=== PATIENT | male | born 1995 | race Caucasian/White ===

== ENCOUNTER 2019-04-24 12:23 | Emergency (ER) | payer OTHER ==
[~2019-04-24] VITALS: Ht 177.8 cm; Wt 99.8 kg
== END 2019-04-24 15:58 | disposition home or self-care (01) ==
LOC: ER 12:23
DX: M54.5 Low back pain (principal)

== ENCOUNTER 2022-01-30 06:00 | Outpatient (CLI) | payer OTHER | END 2022-01-30 15:00 | disposition home or self-care (01) | LOC: LAB 06:00 | PROVIDERS: ATTEND Obstetrics & Gynecology | DX: Z20.828 Contact with and (suspected) exposure to other viral communicable diseases (principal); Z20.818 Contact with and (suspected) exposure to other bacterial communicable diseases ==